=== PATIENT | female | born 1990 | race Caucasian/White ===

== ENCOUNTER → 2019-04-30 15:43 | Outpatient (CLI) | payer MEDICAID, SELFPAY ==
[2017-03-14 11:04] VITALS: BMI 34.7
[2019-04-30 20:11] LABS: Chlamydia Trachomatis by PCR POSITIVE (Negative)
[2019-04-30 20:12] LABS: Neisserai gonorrhoeae by PCR Negative (Negative); Probe Check PASS
[2019-05-05 15:28] LABS: HPV Reflexed? NOT INDICATED
== END ==
PROVIDERS: Visit Provider Obstetrics & Gynecology
DX: Z12.4 Encounter for screening for malignant neoplasm of cervix (principal); Z11.3 Encounter for screening for infections with a predominantly sexual mode of transmission
CPT/HCPCS: 87491; 87591; 88175; G0145

== ENCOUNTER → 2019-09-11 11:24 | Outpatient (CLI) | payer MEDICAID, SELFPAY ==
[2017-03-14 11:04] VITALS: BMI 34.7
[2019-09-11 15:56] LABS: Chlamydia Trachomatis by PCR Negative (Negative); Neisserai gonorrhoeae by PCR Negative (Negative); Probe Check PASS; Sample Adequacy Control PASS; Specimen Processing Control PASS
== END ==
PROVIDERS: Visit Provider Obstetrics & Gynecology
DX: Z11.3 Encounter for screening for infections with a predominantly sexual mode of transmission (principal)
CPT/HCPCS: 87491; 87591

== ENCOUNTER → 2021-02-13 13:56 | Outpatient (CLI) | payer MEDICAID, SELFPAY ==
[2017-03-14 11:04] VITALS: BMI 34.7
[2021-02-16 18:46] LABS: HPV Reflexed? NOT INDICATED
== END ==
PROVIDERS: Visit Provider Student in an Organized Health Care Education/Training Program
DX: Z12.4 Encounter for screening for malignant neoplasm of cervix (principal)
CPT/HCPCS: 88175; G0145

== ENCOUNTER → 2021-03-07 | Outpatient (CLI) | payer MEDICAID, SELFPAY ==
[2017-03-14 11:04] VITALS: BMI 34.7
== END | disposition home or self-care (01) ==
PROVIDERS: Visit Provider Student in an Organized Health Care Education/Training Program
DX: Z11.3 Encounter for screening for infections with a predominantly sexual mode of transmission (principal)

== ENCOUNTER → 2022-08-07 | Outpatient (CLI) | payer MEDICAID, SELFPAY ==
[2022-08-07 12:44] LABS: HIV - WCH Non-Reactive (Nonreactive); Hepatitis B Surface Antigen Non-Reactive (Nonreactive); Hepatitis C Antibody Non-Reactive (Nonreactive); Syphilis Antibodies Non-reactive
[2022-08-08 22:07] LABS: Chlamydia By Nucleic Acid AMP Negative (Negative)
[2022-08-09 08:26] LABS: Gonococcus By Nucleic Acid AMP Negative (Negative)
== END | disposition home or self-care (01) ==
LOC: WOBLAB 10:43
PROVIDERS: Visit Provider Student in an Organized Health Care Education/Training Program
DX: Z01.419 Encounter for gynecological examination (general) (routine) without abnormal findings (principal)
CPT/HCPCS: 36415; 86703; 86780; 86803; 87340; 87491; 87591